=== PATIENT | male | born 1995 | race Caucasian/White ===

== ENCOUNTER 2017-11-04 12:55 | Observation (INO) ==
[2017-11-04 14:22] LABS: Basophils % 0.2 %; Eosinophils # 0.1 K/mcL (0.0-0.6); Eosinophils % 0.4 %; Hematocrit 45.6 % (37.5-50.1); Hemoglobin 15.5 g/dL (12.9-16.9); Immature Granulocytes % 0.4 % (0-4); Lymphocytes # 1.2 K/mcL (0.6-4.6); Lymphocytes % 9.8 %; Mean Corpuscular Hemoglobin 32.2 pg (28.0-33.3); Mean Corpuscular Volume 94.6 fL (83.0-100.0); Mean Platelet Volume 10.4 fL (9.4-12.4); Monocytes % 7.9 %; Platelet Count 234 K/mcL (140-400); Red Blood Count 4.82 M/mcL (4.19-5.50); Red Cell Distribution Width 11.7 % (11.5-14.5); Segmented Neutrophils % 81.3 %
[2017-11-04 14:23] LABS: Neutrophils # 9.8 K/mcL (1.6-8.9)
--- NOTE | 2017-11-04 14:31 | Emergency Department Note ---
Disposition Clinical Impression: Cellulitis of left elbow Cellulitis Qualifiers: Site of cellulitis: extremity Site of cellulitis of extremity: upper extremity Laterality: left Qualified Code(s): L03.114 - Cellulitis of left upper limb Disposition: Admitted As Inpatient Condition: Good Time of Disposition: 14:00 (Dr James accepted him) Extremity Problem HPI - General Chief complaint: ED Extremity Problem,Nontraumatic Stated complaint: left elbow pain, swelling, red Source: patient Limitations: no limitations Nursing Notes Reviewed: Yes Vital Signs Reviewed: Yes - History of Present Illness HPI Narrative: Patient is a pleasant 22-year-old male with no significant PMH who is presenting to [facility] Emergency Room with a chief complaint off left elbow swelling, rash and pain in the past 2 days. He noticed the rash started first and started to be more painful. He denies any traumatic injury, any fall or any bite. He went fishing few days ago otherwise he has no change in his activity and he denies any IV drug abuse. He never have similar symptoms like this in the past. His mother gave him ibuprofen with little relief. Patient denies any fever or chills. Pt also denies any eye pain or visual disturbances. There is no sore throat or nasal or facial congestion. There is no chest pain or racing heart. No shortness of breath or cough. There is no abdominal pain, nausea, vomiting or diarrhea. No dysuria or flank pain. There is no muskulo- skeletal pain, arthralgia or back pain. There is no neurological manifestations , no headache, no vertigo or weakness. The patient also denies any depression, hallucinations and there are no homicidal or suicidal ideations. There is no polyuria or polydipsia. There is no easy bruising or bleeding. Review of other systems is otherwise negative except above. Pt Subjective Complaint: extremity pain, extremity swelling, joint swelling Onset (ago): day(s) Consistency: Worsening Injury Location: upper extremity Pain Scale: 7 Quality: sharp Radiation: none Improves with: nothing - Related Data Home Medications Medication Instructions Recorded Confirmed No Known Home Drugs 11/04/17 11/04/17 Allergies Allergy/AdvReac Type Severity Reaction Status Date / Time bismuth subsalicylate AdvReac Vomiting Verified 11/04/17 12:56 [From Pepto-Bismol] All systems ED: reviewed and negative except as stated. Review of Systems: As Per HPI Constitutional: Denies: fever, chills Eyes: Denies: eye pain, eye discharge ENT ED: Denies: ear pain, throat pain Cardiovascular: Denies: chest pain, palpitations Respiratory: Denies: cough, dyspnea Gastrointestinal: Denies: abdominal pain, nausea Genitourinary: Denies: urgency, dysuria Musculoskeletal: Denies: back pain, neck pain Integumentary: Reports: rash, abrasion, lesions Neurological: Denies: headache, weakness Past Medical History - Past Medical History Medical history: Reports: non-contributory Psychiatric history: Reports: no psych history - Social History Smoking Status: Never smoker Smokeless Tobacco Status: No Alcohol use: Reports: none Drug use: Reports: none Physical Exam - General Limitations: no limitations General appearance: alert, in no apparent distress - Head Head exam: atraumatic, normocephalic, normal inspection - Eye Eye exam: Present: normal appearance, PERRL, EOMI - Expanded Eye Exam Pupils: Left: reactive - ENT ENT exam: normal exam, normal oropharynx, mucous membranes moist - Expanded ENT Exam External ear exam: Present: normal external inspection Mouth exam: Present: normal external inspection Teeth exam: Present: normal inspection Throat exam: Present: normal inspection - Neck Neck exam: Present: normal inspection, full ROM, trachea midline - Chest Chest inspection: Present: normal inspection, symmetric chest wall rise - Respiratory Respiratory exam: Present: normal lung sounds bilaterally - Cardiovascular Cardiovascular exam: Present: regular rate, normal rhythm, normal heart sounds - Abdominal Exam Abdominal exam: Present: soft, Non-Tender. Absent: tenderness, distention, guarding, rebound, rigidity - Extremities Exam Extremities exam: Present: normal inspection, full ROM. Absent: tenderness, pedal edema - Expanded Upper Extremity Exam Shoulder exam: Present: normal inspection, full ROM Arm exam: Present: normal inspection, full ROM Elbow exam: Present: normal inspection, full ROM, tenderness (Elbow has an erythematous rash involving the entire extensor of the elbow and tender in this nonfluctuant. He has no limited range of motion he is able to flex and extend his elbow.), swelling Forearm/Wrist exam: Present: normal inspection, full ROM Hand exam: Present: normal inspection, full ROM Vascular exam: Normal: capillary refill, radial pulse - Expanded Lower Extremity Exam Hip/Pelvis exam: Present: normal inspection, full ROM Upper leg exam: Present: normal inspection, full ROM Knee exam: Present: normal inspection, full ROM Lower leg exam: Present: normal inspection, full ROM Ankle exam: Present: normal inspection, full ROM Foot/toe exam: Present: normal inspection, full ROM Neurovascular/Tendon exam: Absent: motor deficit, sensory deficit, tendon deficit - Back Exam Back exam: Present: normal inspection, full ROM. Absent: tenderness - Neurological Exam Neurological exam: Present: alert, oriented X3 - Expanded Neurological Exam Patient oriented to: Present: person, place, time Coma Scale Eye Opening: Spontaneous Coma Scale Motor Response: Obeys Commands Coma Scale Verbal Response: Oriented Coma Scale Total: 15 - Psychiatric Psychiatric exam: Present: normal affect, normal mood - Skin Skin exam: Present: warm, dry, intact, normal color Course Vital Signs Temperature 99.2 F 11/04/17 12:56 Pulse Rate 78 11/04/17 12:56 Respiratory Rate 16 11/04/17 12:56 Blood Pressure 125/80 11/04/17 12:56 O2 Sat by Pulse Oximetry 98 11/04/17 12:56 Temperature 97.3 F L 11/04/17 23:10 Pulse Rate 73 11/04/17 23:10 Respiratory Rate 16 11/04/17 23:10 Blood Pressure 130/72 11/04/17 23:10 O2 Sat by Pulse Oximetry 95 11/04/17 23:10 Oxygen Delivery Oxygen Delivery Room Air Extremity Problem, Nontraumati - Differential Diagnosis Likely: cellulitis, superficial thrombophlebitis, deep venous thrombosis, septic joint - Medical Records Medical records reviewed: Yes I reviewed the patient's medical records. - Lab Data Lab results reviewed: Yes I reviewed the patient's lab results. Result diagrams: 11/04/17 14:15 11/04/17 14:15 Lab Results 11/04/17 11/04/17 11/04/17 Range/Units 14:15 14:15 14:15 WBC 12.0 H (4.3-11.1) K/mcL RBC 4.82 (4.19-5.50) M/mcL Hgb 15.5 (12.9-16.9) g/dL Hct 45.6 (37.5-50.1) % MCV 94.6 (83.0-100.0) fL MCH 32.2 (28.0-33.3) pg MCHC 34.0 (31.6-35.5) g/dL RDW 11.7 (11.5-14.5) % Plt Count 234 (140-400) K/mcL MPV 10.4 (9.4-12.4) fL Immature Gran % 0.4 (0-4) % Seg Neutrophils % 81.3 % Lymphocytes % 9.8 % Monocytes % 7.9 % Eosinophils % 0.4 % Basophils % 0.2 % Neutrophils # 9.8 H (1.6-8.9) K/mcL Lymphocytes # 1.2 (0.6-4.6) K/mcL Monocytes # 1.0 (0.0-1.3) K/mcL Eosinophils # 0.1 (0.0-0.6) K/mcL Basophils # 0.0 (0.0-0.2) K/mcL ESR 18 H (0-15) mm/hr Sodium 136 (136-145) mEq/L Potassium 4.0 (3.5-5.1) mEq/L Chloride 101 (98-107) mEq/L Carbon Dioxide 29 (23-29) mEq/L BUN 14 (6-20) mg/dL Creatinine 0.95 (0.70-1.30) mg/dL Est GFR ( Amer) > 60 (> 60) Est GFR (Non-Af Amer) > 60 (> 60) BUN/Creatinine Ratio 15 (6-26) Glucose 94 (70-105) mg/dL Calculated Osmolality 282 (280-300) Calcium 9.5 (8.6-10.3) mg/dL C-Reactive Protein (Less than 10) mg/L Urine Color (Yellow) Urine Clarity (Clear) Urine pH (5.0-8.0) pH Units Ur Specific [place] (1.010-1.025) Urine Protein (Neg-Trace) mg/dL Urine Glucose (UA) (Normal) mg/dL Urine Ketones (Negative) mg/dL Urine Blood (Negative) Urine Nitrite (Negative) Urine Bilirubin (Negative) Urine Urobilinogen (Normal) mg/dL Ur Leukocyte Esterase (Negative) 11/04/17 11/04/17 Range/Units 14:15 14:41 WBC (4.3-11.1) K/mcL RBC (4.19-5.50) M/mcL Hgb (12.9-16.9) g/dL Hct (37.5-50.1) % MCV (83.0-100.0) fL MCH (28.0-33.3) pg MCHC (31.6-35.5) g/dL RDW (11.5-14.5) % Plt Count (140-400) K/mcL MPV (9.4-12.4) fL Immature Gran % (0-4) % Seg Neutrophils % % Lymphocytes % % Monocytes % % Eosinophils % % Basophils % % Neutrophils # (1.6-8.9) K/mcL Lymphocytes # (0.6-4.6) K/mcL Monocytes # (0.0-1.3) K/mcL Eosinophils # (0.0-0.6) K/mcL Basophils # (0.0-0.2) K/mcL ESR (0-15) mm/hr Sodium (136-145) mEq/L Potassium (3.5-5.1) mEq/L Chloride (98-107) mEq/L Carbon Dioxide (23-29) mEq/L BUN (6-20) mg/dL Creatinine (0.70-1.30) mg/dL Est GFR ( Amer) (> 60) Est GFR (Non-Af Amer) (> 60) BUN/Creatinine Ratio (6-26) Glucose (70-105) mg/dL Calculated Osmolality (280-300) Calcium (8.6-10.3) mg/dL C-Reactive Protein 50 H (Less than 10) mg/L Urine Color Yellow (Yellow) Urine Clarity Clear (Clear) Urine pH 7.0 (5.0-8.0) pH Units Ur Specific [place] 1.020 (1.010-1.025) Urine Protein Negative (Neg-Trace) mg/dL Urine Glucose (UA) Normal (Normal) mg/dL Urine Ketones Negative (Negative) mg/dL Urine Blood Negative (Negative) Urine Nitrite Negative (Negative) Urine Bilirubin Negative (Negative) Urine Urobilinogen Normal (Normal) mg/dL Ur Leukocyte Esterase Negative (Negative) - Radiology Data Radiology results reviewed: Yes I reviewed the patient's radiology results.
[2017-11-04 14:36] LABS: BUN/Creatinine Ratio 15 (6-26); Blood Urea Nitrogen 14 mg/dL (6-20); Calcium 9.5 mg/dL (8.6-10.3); Carbon Dioxide 29 mEq/L (23-29); Chloride 101 mEq/L (98-107); Glucose 94 mg/dL (70-105); Osmolality,Calculated 282 (280-300); Sodium 136 mEq/L (136-145); eGFR For African Americans > 60 (> 60); eGFR For Non-African Americans > 60 (> 60)
[2017-11-04] MEDS ORDERED: Acetaminophen 325 MG TABLET PO PRN (14:36)
[2017-11-04] MEDS ORDERED: Naloxone 0.4 MG/ML INJ IVP PRN (14:36)
[2017-11-04] MEDS ORDERED: traMADol 50 MG TABLET PO PRN (14:36)
[2017-11-04] MEDS ORDERED: 0.9 % Sodium Chloride w KCl 20 MEQ/1,000 ML MLS IVC SCH (14:45)
[2017-11-04 14:51] LABS: Bilirubin,Urine Negative (Negative); Blood,Urine Negative (Negative); Clarity,Urine Clear (Clear); Color,Urine Yellow (Yellow); Glucose,Urine (UA) Normal (Normal); Ketones,Urine Negative (Negative); Leukocyte Esterase,Urine Negative (Negative); Nitrite,Urine Negative (Negative); Protein,Urine Negative (Neg-Trace); Urobilinogen,Urine Normal (Normal)
[2017-11-04] MEDS ORDERED: ceFAZolin 1,000 MG in Water for inj. (sterile) 20 ML 10 ML IVP ONE ×2 (18:00→20:15)
--- NOTE | 2017-11-04 18:41 | Internal Med History&Physical ---
Date of Encounter: 11/04/17 Time of Encounter: 18:00 Assessment and Plan (1) Acute arthritis Current visit: Yes Status: Acute No effusion felt to be present. He has been ordered IV Ancef and vancomycin. Lactobacillus will be added. Reassessment and labs will be done in a.m. (2) Cellulitis of left elbow Current visit: Yes Status: Acute As above Internal Medicine - H&P: HPI Chief complaint: Left elbow pain and swelling Admitted From: Emergency Dept Plans for Post Hospital Care: Home History of present illness: Mr. Gonzales is a 22 year old male who noted discomfort in his left elbow the evening of November 02 following outdoor activities including kayaking and fishing earlier in the day at [place]. He returned to his home in this area the following day and noted increased pain redness and swelling in the elbow. He took ibuprofen and Benadryl without relief so came to emergency room today for further evaluation. He was found to have mild leukocytosis with left shift and elbow swelling and erythema. [facility] for IV antibiotics and ongoing care needs. He denies any trauma to the elbow. He denies puncture wounds or bites. Denies previous similar episodes. No other joints are affected. Past Med Surg Social Fam HX - Past Medical History Medical history: non-contributory Psychiatric history: no psych history - Social History Smoking Status: Never smoker Smokeless Tobacco Status: No Alcohol use: none Drug use: none Internal Medicine - H&P: Meds No Known Home Drugs 11/04/17 [History] 3 Allergy/AdvReac Type Severity Reaction Status Date / Time bismuth subsalicylate AdvReac Vomiting Verified 11/04/17 12:56 [From Pepto-Bismol] All Systems PM: A 10-system review of systems was performed and is negative for pertinent findings except as documented above in the HPI. Review of systems: Gen.: He states his weight has been stable the past few months Cardiovascular: Denies hypertension SC heart failure angina DVT or pulmonary embolus Respiratory: He is a lifelong nonsmoker and has no known chronic lung disease GI: Denies disorders of his liver gallbladder or exocrine pancreas. He reports occasional diarrhea and constipation with bloating and gas but has not linked these symptoms to specific foods. : He denies hematuria dysuria or kidney stones Neurologic: He denies large distribution strokes or seizures. Endocrine: He denies diabetes thyroid disease or hyperlipidemia Hematology/oncology: Denies blood disorders cancers or anemia Psychiatric: He denies anxiety depression other mental health issues [place] skeletal: He denies arthritis gout or other bone joint or muscle disorders. - Constitutional Vitals: Temp Pulse Resp BP Pulse Ox 98.1 F 76 16 125/74 99 11/04/17 15:14 11/04/17 15:14 11/04/17 15:14 11/04/17 15:14 11/04/17 15:14 Exam: Gen.: He is well-developed well-nourished male who appears in mild to moderate pain when his left elbow was moved HEENT: Head is atraumatic and normocephalic. Eyes: EOMI. There is no scleral icterus. Mouth: Mucosa is moist. Neck: Supple and nontender. There is no thyromegaly or adenopathy noted. Heart: Regular without murmurs gallops or ectopics Lungs: No wheezes or crackles are heard. Abdomen: Nontender. No masses or guarding are noted. Extremities: There is no cyanosis edema or clubbing noted. Dorsalis pedis and posttibial pulses are 2 over 2 bilaterally. He has erythema, swelling and tenderness on the left elbow area. There is no lymphangitic streaking. There is no axillary adenopathy palpated. There are no other inflamed joints of his hands wrists elbows or shoulders. Neurologic: Mental status: He is talkative and a good historian. Cranial nerves : Smile is symmetric. Forehead wrinkles bilaterally. Tongue protrudes midline. EOMI. Motor: There is no pronator drift. Cerebellar: Finger to nose is intact bilaterally. Skin: Warm and dry Internal Med - H&P Results - Labs CBC & Chem 7: 11/04/17 14:15 11/04/17 14:15 - VTE Reasons for not Prescribing Prophylaxis: Treatment not Indicated - Low risk for VTE
[2017-11-05] MEDS: ceFAZolin 1,000 MG in Water for inj. (sterile) 20 ML 10 ML IVP SCH ×2 (00:57→09:06)
[2017-11-05] MEDS: Lactobacillus 1 EACH CAP.SPRINK PO SCH ×2 (01:21→09:04)
[2017-11-05 06:46] VITALS: BP 117/73
[2017-11-05 07:36] LABS: Basophils % 0.1 %; Eosinophils # 0.1 K/mcL (0.0-0.6); Eosinophils % 1.4 %; Hematocrit 42.2 % (37.5-50.1); Hemoglobin 14.3 g/dL (12.9-16.9); Immature Granulocytes % 0.2 % (0-4); Lymphocytes # 1.3 K/mcL (0.6-4.6); Lymphocytes % 15.5 %; Mean Corpuscular HGB Conc 33.9 g/dL (31.6-35.5); Mean Corpuscular Hemoglobin 32.2 pg (28.0-33.3); Mean Platelet Volume 10.4 fL (9.4-12.4); Monocytes # 0.9 K/mcL (0.0-1.3); Monocytes % 10.8 %; Neutrophils # 6.1 K/mcL (1.6-8.9); Platelet Count 210 K/mcL (140-400); Red Blood Count 4.44 M/mcL (4.19-5.50); Red Cell Distribution Width 11.7 % (11.5-14.5)
--- NOTE | 2017-11-05 09:47 | Discharge Summary ---
Date of Encounter: 11/05/17 Time of Encounter: 09:38 - Discharge Diagnosis (1) Acute arthritis Priority: Primary Status: Acute (2) Cellulitis of left elbow Priority: Secondary Status: Acute Hospital course: Mr. Gonzales is a 22 year old male who noted discomfort in his left elbow the evening of November 02 following outdoor activities including kayaking and fishing earlier in the day at [place]. He returned to his home in this area the following day and noted increased pain redness and swelling in the elbow. He took ibuprofen and Benadryl without relief so came to emergency room today for further evaluation. He was found to have mild leukocytosis with left shift and elbow swelling and erythema. He was admitted to [facility] floor for IV antibiotics and ongoing care needs. Initial orders were written by the emergency room physician. I saw him on November 04 and performed a history and physical. He was started on IV Ancef and vancomycin. Lactobacillus was given. He had significant clinical improvement with normalization of WBC and left shift by the following morning. There was significant decrease in the pain and erythema of the elbow. He remained afebrile. He felt stable for discharge home which I felt was reasonable. He will continue with antibiotic and probiotic for 7 days. He will follow with his PCP ANAND Penn CNP within 1 week who can determine if further intervention should be done. He can return to work November 07 if stable. Uric acid level returned normal at 3.1. - Time Spent with Patient Total time spent providing and/or coordinating discharge services: - Discharge Medications Prescriptions: Doxycycline 100 mg PO BID #14 capsule Lactobacillus [Culturelle] 1 each PO BID #14 cap.sprink Sulfamethoxazole/Trimeth DS [Bactrim DS] 1 each PO BID #14 tablet Home Medications: Doxycycline 100 mg PO BID #14 capsule 11/05/17 [Rx] Lactobacillus [Culturelle] 1 each PO BID #14 cap.sprink 11/05/17 [Rx] Sulfamethoxazole/Trimeth DS [Bactrim DS] 1 each PO BID #14 tablet 11/05/17 [Rx] Allergies/Adverse Reactions: 3 Allergy/AdvReac Type Severity Reaction Status Date / Time bismuth subsalicylate AdvReac Vomiting Verified 11/04/17 12:56 [From Pepto-Bismol] Date of admission: 11/04/17 15:00 Primary care physician: Ishmael Penn CNP - Constitutional Vitals: Temp Pulse Resp BP Pulse Ox 98.1 F 70 16 117/73 98 11/05/17 06:42 11/05/17 06:42 11/05/17 06:42 11/05/17 06:42 11/05/17 06:42 - Patient Status Disposition: Home, Self-Care Condition: Good Overall status at discharge: patient is progressing back to baseline - Discharge Instructions Follow Up With: Ishmael Penn, [place] [Primary Care Provider] - 1 week - Diet and Activity Diet: advance to your usual diet - VTE Reasons for not Prescribing Prophylaxis: Treatment not Indicated - Low risk for VTE
== END 2017-11-05 11:18 | disposition home or self-care (01) ==
LOC: EMEROOPIK 12:55 → INPPIK 12:55
PROVIDERS: ADMIT Internal Medicine; ATTEND Internal Medicine